=== PATIENT | male | born 1950 | race Caucasian/White ===

== ENCOUNTER 2022-02-07 07:08 | Emergency (ER) | payer MEDICARE ==
[~2022-02-07] VITALS: Ht 180.3 cm; Wt 86.4 kg
[2022-02-07] MEDS: oxymetazoline 15 ML nasal spray NS ONE (08:57)
[2022-02-07] MEDS: LIDOcaine 4% (40 mg/ml) topical solution 50ml TP ONE (08:57)
[2022-02-07] MEDS: silver nitrate applicator stick TP ONE ×2 (08:57→09:28)
[2022-02-07 10:20] VITALS: BP 151/98
== END 2022-02-07 10:21 | disposition home or self-care (01) ==
LOC: ER 07:08
DX: R04.0 Epistaxis (principal); I10 Essential (primary) hypertension; E11.9 Type 2 diabetes mellitus without complications; Z90.89 Acquired absence of other organs
CPT/HCPCS: 30901; 99284

== ENCOUNTER 2022-02-08 10:27 | Emergency (ER) | payer MEDICARE ==
[~2022-02-08] VITALS: Ht 180.3 cm; Wt 86.4 kg
[2022-02-08 11:11] VITALS: BP 158/87
[2022-02-08] MEDS ORDERED: cocaine 4% topical solution 4ml bottle TP ONE (11:40)
[2022-02-08] MEDS ORDERED: oxymetazoline 15 ML nasal spray NS ONE (11:40)
== END 2022-02-08 12:54 | disposition home or self-care (01) ==
LOC: ER 10:28
DX: R04.0 Epistaxis (principal); I10 Essential (primary) hypertension; E11.9 Type 2 diabetes mellitus without complications; Z90.89 Acquired absence of other organs
CPT/HCPCS: 30901; 99284